=== PATIENT | female | born 1955 | race Caucasian/White ===

== ENCOUNTER → 2017-08-30 | Outpatient (CLI) | payer BC ==
[~2017-08-30] MED LIST: BENADRYL25 M2 PO; LEVAQUIN 5500 MG/TA1 PO; MEDROL 4MG DOSPA4 MG PO; PEPCID AC 10MG10 MG PO; PREDNISONE10 MG PO
== END ==
LOC: COL.LAB 08-29 15:57
DX: J45.909 Unspecified asthma, uncomplicated (principal)

== ENCOUNTER 2018-06-26 17:30 | Outpatient (CLI) | payer BC ==
[~2018-06-26] VITALS: Ht 162.6 cm; Wt 70.1 kg
[2018-06-26 18:21] VITALS: BP 117/73; PULSE 69; TEMP 97.7
[2018-06-26] MEDS ORDERED: EPA FISH OIL1 SGL PO (18:55)
[2018-06-26] MEDS ORDERED: ALLEGRA 180MG180 MG PO (18:56)
[2018-06-26] MEDS ORDERED: LUTEIN20 M1 PO (18:56)
[2018-06-26] MEDS ORDERED: FLONASEALLERGY NS (18:56)
[2018-06-26] MEDS ORDERED: CLARITIN 1010 MG/TAB PO (18:57)
[2018-06-26] MEDS ORDERED: PROAIR HFA0.09 MG/AC IH (18:57)
[2018-06-26] MEDS ORDERED: ZANTAC 150MG T150 MG PO (18:57)
== END 2018-08-14 16:12 | disposition home or self-care (01) ==
LOC: EUO 17:30
DX: L50.9 Urticaria, unspecified (principal); Z79.899 Other long term (current) drug therapy
CPT/HCPCS: J2357

== ENCOUNTER 2018-08-14 15:14 | Outpatient (CLI) | payer BC ==
[~2018-08-14] VITALS: Ht 162.6 cm; Wt 70.1 kg
[~2018-08-14 15:14] MED LIST changes: +ALLEGRA 180MG180 MG PO; +CLARITIN 1010 MG/TAB PO; +EPA FISH OIL1 SGL PO; +FLONASEALLERGY NS; +LUTEIN20 M1 PO; +PROAIR HFA0.09 MG/AC IH; +ZANTAC 150MG T150 MG PO
[2018-08-14 15:48] VITALS: BP 126/69; PULSE 67; TEMP 98.1
== END 2018-08-14 16:12 | disposition home or self-care (01) ==
LOC: EUO 15:14
DX: L50.9 Urticaria, unspecified (principal); J45.909 Unspecified asthma, uncomplicated; J30.89 Other allergic rhinitis; Z79.899 Other long term (current) drug therapy
CPT/HCPCS: J2357

== ENCOUNTER 2018-09-25 14:48 | Outpatient (CLI) | payer BC ==
[~2018-09-25] VITALS: Ht 162.6 cm; Wt 69.0 kg
[2018-09-25 15:16] VITALS: BP 101/58; PULSE 66; TEMP 98
[2018-09-25] MEDS ORDERED: ZYRTEC 10MG10 MG PO (15:24)
--- NOTE | 2018-09-25 15:38 | NUR ---
VM left for Azucena Sky's nurse requesting new PA prior to 11/06/18 dose.
--- NOTE | 2018-09-25 15:38 | NUR ---
Pt siva xolair well. Pt left unit per ambulation.
== END 2018-09-25 16:05 | disposition home or self-care (01) ==
LOC: EUO 14:48
DX: L50.9 Urticaria, unspecified (principal); Z79.899 Other long term (current) drug therapy
CPT/HCPCS: J2357

== ENCOUNTER → 2018-11-11 | Outpatient (CLI) | payer BC ==
[~2018-11-11] VITALS: Ht 162.6 cm; Wt 68.8 kg
[~2018-11-11] MED LIST changes: +ZYRTEC 10MG10 MG PO
[2018-11-11 15:16] VITALS: BP 105/67; PULSE 72; TEMP 98.1
== END ==
LOC: EUO 11-06 15:00
DX: L50.9 Urticaria, unspecified (principal)
CPT/HCPCS: J2357

== ENCOUNTER 2018-12-25 15:03 | Outpatient (CLI) | payer BC ==
[~2018-12-25] VITALS: Ht 162.6 cm; Wt 67.9 kg
[2018-12-25 15:27] VITALS: BP 108/61; PULSE 74; TEMP 98
== END 2018-12-25 15:56 | disposition home or self-care (01) ==
LOC: EUO 15:03
DX: L50.9 Urticaria, unspecified (principal); Z79.899 Other long term (current) drug therapy
CPT/HCPCS: J2357

== ENCOUNTER → 2019-01-07 | Outpatient (CLI) | payer BC ==
[2019-01-07 10:02] LABS: EOS # 0.2 (0.0-0.7); EOS % 4.7 % (0-4.0); GRAN # 1.7 (1.4-6.5); GRAN % 42.2 % (42.2-75.2); HEMATOCRIT 43.9 % (37.0-47.0); HEMOGLOBIN 14.2 g/dl (12.5-16.0); LYMPH # 1.8 (1.2-3.4); LYMPH % 44.3 % (20.0-51.0); MEAN CELL VOLUME 92 fl (80.0-100.0); MEAN CORPUSCULAR HEMOGLOBIN 30 pg (27.0-31.0); MEAN CORPUSCULAR HGB CONC 32 g/dl (33.0-37.0); MEAN PLATELET VOLUME 9.4 fl (7.4-10.4); MONO # 0.3 (0.1-0.6); MONO % 7.6 % (1.7-9.3); PLATELET COUNT 287 K/mm3 (130-400); RED BLOOD COUNT 4.79 M/mm3 (4.10-5.30); REDCELL DISTRIBUTION WIDTH-CV 13.1 % (11.5-14.5)
[2019-01-07 10:13] LABS: ALBUMIN 4.9 gm/dL (3.5-5.0); BILIRUBIN,TOTAL 0.7 mg/dL (0.0-1.0); CHOLESTEROL RISK RATIO 2.8; CREATININE, serum 0.64 (0.52-1.25); POTASSIUM 4.6 mmol/L (3.4-5.0); TOTAL PROTEIN 8.4 gm/dL (6.4-8.2)
[2019-01-07 10:43] LABS: THYROID STIMULATING HORMONE 0.805 uIU/mL (0.465-4.680)
== END ==
LOC: COL.LAB 09:39
PROVIDERS: Family Medicine
DX: Z00.00 Encounter for general adult medical examination without abnormal findings (principal); Z13.0 Encounter for screening for diseases of the blood and blood-forming organs and certain disorders involving the immune mechanism; Z13.220 Encounter for screening for lipoid disorders; Z13.29 Encounter for screening for other suspected endocrine disorder; T78.40XA Allergy, unspecified, initial encounter

== ENCOUNTER 2019-02-20 15:33 | Outpatient (CLI) | payer BC ==
[~2019-02-20] VITALS: Ht 162.6 cm; Wt 68.0 kg
[2019-02-20] MEDS ORDERED: DAY TIME 325 MG1 SGL PO (16:02)
[2019-02-20 16:06] VITALS: BP 114/68; PULSE 67; TEMP 98.1
== END 2019-02-20 16:24 | disposition home or self-care (01) ==
LOC: EUO 15:33
DX: L50.9 Urticaria, unspecified (principal); Z79.899 Other long term (current) drug therapy
CPT/HCPCS: J2357

== ENCOUNTER → 2019-03-13 | Outpatient (CLI) | payer BC ==
[~2019-03-13] MED LIST changes: +DAY TIME 325 MG1 SGL PO
== END ==
LOC: MC.RAD 07:15
DX: Z12.31 Encounter for screening mammogram for malignant neoplasm of breast (principal)

== ENCOUNTER 2019-04-11 11:45 | Outpatient (CLI) | payer BC ==
[~2019-04-11] VITALS: Ht 162.6 cm; Wt 69.3 kg
[2019-04-11 12:21] VITALS: BP 104/64; PULSE 64; TEMP 97.2
== END 2019-04-11 12:33 | disposition home or self-care (01) ==
LOC: EUO 11:45
DX: L50.9 Urticaria, unspecified (principal); Z79.899 Other long term (current) drug therapy
CPT/HCPCS: J2357

== ENCOUNTER 2019-07-17 15:20 | Outpatient (CLI) | payer BC ==
[~2019-07-17 15:20] MED LIST changes: +MUCINEX 60600 MG/TA1 PO
[2019-07-17] MEDS ORDERED: XOLAIR150 MG/1 M SQ (15:54)
[2019-07-17 15:58] VITALS: BP 124/71; PULSE 67; TEMP 98.3
== END 2019-07-17 16:03 | disposition home or self-care (01) ==
LOC: EUO 15:20
DX: L50.9 Urticaria, unspecified (principal); Z79.899 Other long term (current) drug therapy
CPT/HCPCS: J2357

== ENCOUNTER 2019-08-28 15:05 | Outpatient (CLI) | payer BC ==
[~2019-08-28] VITALS: Ht 162.6 cm; Wt 70.2 kg
[2019-08-28 15:00] VITALS: BP 106/70; PULSE 78; TEMP 97.8
[~2019-08-28 15:05] MED LIST changes: +XOLAIR150 MG/1 M SQ
== END 2019-08-28 15:30 | disposition home or self-care (01) ==
LOC: EUO 15:05
DX: L50.9 Urticaria, unspecified (principal); Z79.899 Other long term (current) drug therapy
CPT/HCPCS: J2357

== ENCOUNTER 2019-10-09 15:07 | Outpatient (CLI) | payer BC ==
--- NOTE | 2019-10-08 10:32 | NUR ---
LEFT MESSAGE IN REGARDS TO APPT TOMORROW AND ID SCREENING QUESTIONS. ENCOURAGED PT TO RETURN PHONE CALL.
[~2019-10-09] VITALS: Ht 162.6 cm; Wt 69.0 kg
[2019-10-09] MEDS ORDERED: ALLEGRA 180MG180 MG PO (15:16)
[2019-10-09] MEDS ORDERED: PATADAY5 ML OP (15:16)
[2019-10-09 15:18] VITALS: BP 138/69; PULSE 76; TEMP 97.7
== END 2019-10-09 16:00 | disposition home or self-care (01) ==
LOC: EUO 15:07
DX: L50.9 Urticaria, unspecified (principal); Z79.899 Other long term (current) drug therapy
CPT/HCPCS: J2357

== ENCOUNTER 2019-12-05 16:03 | Outpatient (CLI) | payer BC ==
[~2019-12-05] VITALS: Ht 162.6 cm; Wt 69.5 kg
[2019-12-05 16:00] VITALS: BP 109/66; PULSE 62; TEMP 98.9
[~2019-12-05 16:03] MED LIST changes: +PATADAY5 ML OP
== END 2019-12-05 17:40 | disposition home or self-care (01) ==
LOC: EUO 16:03
DX: L50.9 Urticaria, unspecified (principal); Z79.899 Other long term (current) drug therapy
CPT/HCPCS: J2357

== ENCOUNTER 2020-02-23 15:38 | Outpatient (CLI) | payer BC ==
[2020-02-23] MEDS ORDERED: SINGULAIR 110 MG/TAB PO (16:16)
[2020-02-23 16:30] VITALS: BP 134/88; PULSE 82; TEMP 97.7
== END 2020-02-23 16:43 | disposition home or self-care (01) ==
LOC: EUO 15:38
DX: L50.9 Urticaria, unspecified (principal); Z79.899 Other long term (current) drug therapy
CPT/HCPCS: J2357

== ENCOUNTER 2020-04-01 15:22 | Outpatient (CLI) | payer BC ==
[~2020-04-01] VITALS: Ht 162.6 cm; Wt 69.6 kg
[~2020-04-01 15:22] MED LIST changes: +SINGULAIR 110 MG/TAB PO
[2020-04-01 16:22] VITALS: BP 103/67; PULSE 74; TEMP 98.1
== END 2020-04-01 16:15 | disposition home or self-care (01) ==
LOC: EUO 15:22
DX: L50.9 Urticaria, unspecified (principal); Z79.899 Other long term (current) drug therapy

== ENCOUNTER 2020-05-27 12:46 | Outpatient (CLI) | payer BC ==
[~2020-05-27] VITALS: Ht 162.6 cm; Wt 71.5 kg
[~2020-05-27 12:46] MED LIST changes: +OMNICEF 300MG300 MG PO; +VITAMINC1000TA PO
[2020-05-27 13:16] VITALS: BP 104/68; PULSE 75; TEMP 97.6
== END 2020-05-27 13:27 | disposition home or self-care (01) ==
LOC: EUO 12:46
DX: L50.9 Urticaria, unspecified (principal); Z79.899 Other long term (current) drug therapy
CPT/HCPCS: J2357

== ENCOUNTER → 2020-12-03 | Outpatient (CLI) | payer BC | LOC: MC.RAD 07:30 | DX: Z12.31 Encounter for screening mammogram for malignant neoplasm of breast (principal) ==

== ENCOUNTER → 2022-01-04 | Outpatient (CLI) | payer BC | LOC: MC.RAD 07:43 | DX: Z12.31 Encounter for screening mammogram for malignant neoplasm of breast (principal) ==

== ENCOUNTER → 2023-03-27 | Outpatient (CLI) | payer MEDICARE, OTHER | LOC: MC.RAD 10:18 | DX: Z12.31 Encounter for screening mammogram for malignant neoplasm of breast (principal) ==